=== PATIENT | male | born 1950 | race Caucasian/White ===

== ENCOUNTER 2017-12-05 11:27 | Day surgery (SDC) | payer OTHER ==
--- NOTE | 2017-12-06 12:24 | GI Report ---
REFERRING PHYSICIAN: Dr. Shoshana Patel [employer] PR[employer] TENDER: Porfirio Barrett MD PROCEDURE MEDICATION: Propofol as per anesthesia. INDICATIONS: Patient is a 67-year-old man who had adenomatous polyps a number of years ago. His last colonoscopy was clear 5 years ago. He denies any change in his stools. PROCEDURE PERFORMED: Colonoscopy. PROCEDURE: An Olympus video colonoscope was advanced to the rectum. A slightly atonic redundant colon. It took some maneuvering and nurse compression to finally reach the base of the cecum. The appendiceal orifice and ileocecal valve looked normal. On slow withdrawal, the cecum, ascending colon, and transverse colon with no obvious intraluminal lesions noted. The descending colon and sigmoid with redundancy. No obvious intraluminal lesions were noted. Retroflexion of the rectum was normal. Patient tolerated the procedure well. FINDINGS: Normal mucosa throughout. RECOMMENDATIONS: 1. A high-fiber diet. 2. Since he has had no return of polyps, consider re-looking at his colon in 7 to 10 years, unless there is some interval change. cc: Dr. Shoshana Patel [facility]ITAL[facility]jit
== END 2017-12-05 11:30 ==
LOC: OPSURG 11:27
PROVIDERS: ATTEND Internal Medicine Gastroenterology
DX: Q43.8 Other specified congenital malformations of intestine (principal); Z86.010 Personal history of colon polyps; I10 Essential (primary) hypertension; R01.1 Cardiac murmur, unspecified
CPT/HCPCS: 45378; J2001; J2704; S1016